=== PATIENT | female | born 1955 | race Two or more races ===

== ENCOUNTER 2025-02-02 12:32 | Emergency (ER) | payer OTHER ==
[~2025-02-02] VITALS: Ht 154.9 cm; Wt 68.0 kg
[2025-02-02] MEDS ORDERED: LEVO-T25 MCG PO (13:54)
[2025-02-02] MEDS ORDERED: LIPITOR40 MG PO (13:55)
[2025-02-02] MEDS ORDERED: COZAAR25 MG PO (13:55)
[2025-02-02] MEDS ORDERED: DIPHENHYDRAMINE HCL 50 MG/ML VIAL 1ML IM ONE (14:15)
[2025-02-02] MEDS ORDERED: METHYLPREDNISOLONE SOD SUCC 40 MG VIAL IM ONE (14:15)
[2025-02-02] MEDS ORDERED: DIPHENHYDRAMINE HCL 50 MG/ML VIAL 1ML ONE (14:18)
[2025-02-02] MEDS ORDERED: METHYLPREDNISOLONE SOD SUCC 40 MG VIAL ONE (14:18)
[2025-02-02] MEDS ORDERED: TACROLIMUS30 G1 TOP (14:21)
== END 2025-02-02 14:40 | disposition home or self-care (01) ==
LOC: ER 12:32
DX: L20.89 Other atopic dermatitis (principal); I10 Essential (primary) hypertension; E03.8 Other specified hypothyroidism
CPT/HCPCS: 96372; 99282; J1200; J3490

== ENCOUNTER 2025-03-22 14:42 | Emergency (ER) | payer OTHER ==
[~2025-03-22] VITALS: Ht 154.9 cm; Wt 74.8 kg
[~2025-03-22 14:42] MED LIST: COZAAR25 MG PO; LEVO-T25 MCG PO; LIPITOR40 MG PO; TACROLIMUS30 G1 TOP
[2025-03-22] MEDS ORDERED: METHYLPREDNISOLONE SOD SUCC 40 MG VIAL IM STA (17:18)
[2025-03-22] MEDS ORDERED: DIPHENHYDRAMINE HCL 50 MG/ML VIAL 1ML IM STA (17:18)
[2025-03-22] MEDS ORDERED: KETOCONAZOLE15 GM TOP (19:13)
[2025-03-22] MEDS ORDERED: XYZAL5 MG PO (19:13)
== END 2025-03-22 19:08 | disposition home or self-care (01) ==
LOC: ER 14:42
DX: L20.9 Atopic dermatitis, unspecified (principal); B36.9 Superficial mycosis, unspecified; R21 Rash and other nonspecific skin eruption; I10 Essential (primary) hypertension
CPT/HCPCS: 96372; 99282; J1200; J3490

== ENCOUNTER 2025-03-30 18:11 | Emergency (ER) | payer OTHER ==
[~2025-03-30] VITALS: Ht 154.9 cm; Wt 69.4 kg
[~2025-03-30 18:11] MED LIST changes: +KETOCONAZOLE15 GM TOP; +XYZAL5 MG PO
[2025-03-30] MEDS ORDERED: DEXAMETHASONE SODIUM PHOSPHATE 4 MG/ML VIAL IM STA (20:56)
== END 2025-03-30 21:23 | disposition home or self-care (01) ==
LOC: ER 18:11
DX: B35.4 Tinea corporis (principal)
CPT/HCPCS: 96372; 99282; J1100